=== PATIENT | male | born 1935 | race Caucasian/White ===

== ENCOUNTER → 2016-02-19 | Day surgery (SDC) | payer OTHER ==
[2016-02-14 10:33] VITALS: Ht 179.1 cm; Wt 91.4 kg
[~2016-02-19] VITALS: Ht 179.1 cm; Wt 91.4 kg
[~2016-02-19] MED LIST: 500ML BSS 0.3ML EPI 1:1000PF IRRIG ONE; ACETAMINOPHEN 325 MG TAB PO PRN; AMVISC PLUS 0.8ML SYRINGE INT OCU ONE; ASPCH81X PO; ATROPINE SULFATE 0.1 MG/ML 5ML SYR IV PRN; AcetaZOLAMIDE 250 MG TAB PO SCH; BETAXOLOL HCL 0.25% OP SUSP PER DROP CHARGE OPR SCH; BRIMONIDINE TART 0.2% OP SOLN PER DROP CHARGE ONE; BSS FLUSH ONE; CALC600T9 PO; CINN1CAP2 PO; ENDOCOAT 0.85ML SYRINGE INT OCU ONE; EpHEDrine SULFATE INJ 50 MG/ML AMP IV PRN; EpINEphrine INJ 1MG/ML AMP 1 MG/ML AMP ONE; FENTANYL CITRATE INJ 50 MCG/1 ML 2 ML VIAL IV PRN; FLUMAZENIL 0.1 MG/1 ML 10 ML VIAL IV PRN; GINS1CAP PO; HYDROmorphone INJ 0.5 MG/0.5 ML SYR IV PRN; HydrALAZINE HCL 20 MG/ML VIAL IV. STA; HydrALAZINE HCL 20 MG/ML VIAL ONE; LABETALOL HCL IV 5 MG/ML 20ML IV PRN; LACTATED RINGER'S 1000ML 500 ML IV SCH; LIDOCAINE 4% OP SOLN DROP CHARGE ONE; LIDOCAINE 4% OP SOLN DROP CHARGE OPR SCH; LIDOCAINE HCL 1% MPF 2 ML VIAL ONE; MELO15TA4 PO; MEPERIDINE HCL 25 MG/ML CARP IV PRN; MIDAZOLAM HCL 1 MG/ML 2ML VIAL ONE; MIX: 4ML BSS 1ML EPI 1:1000 PF INSTIL ONE; MOXIFLOXACIN OPH SOLN PER DROP CHARGE ONE; NALOXONE HCL 0.4 MG/1 ML VIAL/CARP IV PRN; NIAC500T11 PO; NUTRTAB48 PO; OCUCOAT 1 ML SOLN IO ONE; OMEG10007 PO; ONDANSETRON INJ 2 MG/ML 2 ML VIAL IV PRN; PHENYLEPHRINE 100MCG/ML 5ML SYR IV PRN; POVIDONE-IODINE OP SOLN 30 ML BTL ONE; PRDFOPS/10 OPR; PROPARACAINE 0.5% OP SOLN PER DROP CHARGE OPR SCH; PROPARACAINE HCL 0.5% OP SOLN 15 ML BTL OPR ONE; TOBRAMYCIN/DEXAMETHASONE OPH OINT PER APPLN CHARGE ONE; TUMERIC PO; TURM500T PO; VITATAB8 PO; [UNRECOGNIZED DRUG - CODE] PO; [UNRECOGNIZED DRUG - OTHER] PO
[2016-02-19] MEDS: PHENYLEPHRINE HCL 2.5% OP SOLN PER DROP CHARGE OPR SCH ×2 (07:53→07:58)
[2016-02-19] MEDS: TROPICAMIDE 1% OP SOLN PER DROP CHARGE OPR SCH ×2 (07:54→07:59)
[2016-02-19] MEDS: CYCLOPENTOLATE HCL 1% OP SOLN PER DROP CHARGE OPR SCH ×2 (07:55→08:00)
[2016-02-19] MEDS: MOXIFLOXACIN OPH SOLN PER DROP CHARGE OPR SCH ×2 (07:56→08:06)
--- NOTE | 2016-02-19 08:17 | History & Physical Bridge - SC ---
H&P Re-Evaluation Bridge Note: I have examined the patient, reviewed the History & Physical and in the interval since the performance of the History & Physical I have noted the following changes of clinical significance: No changes noted Planning Femto Laser.
--- NOTE | 2016-02-19 09:20 | Discharge Instructions-SurgCtr ---
Discharge Instructions Visit Reason for Visit: Cataract Right Eye Discharge Discharge Diagnosis / Problem: Lens Implant Right Eye Discharge Goals Goal(s): Improve function Activity Recommendations Activity Limitations: resume your previous activity Lifting Limitations: no more than 10 pounds Exercise/Sports Limitations: gradually increase as tolerated May Resume Sexual Activity: when tolerated Shower/Bathe: tomorrow Driving or Machine Use: resume 1 day after discharge Anesthesia . Post Anesthesia Instructions: If you have had General Anesthesia or IV Sedation: * Do not drive today. * Resume driving when surgeon permits. * Do not make important decisions or sign legal documents today. * Call surgeon for: 1. Temperature elevations greater than 101 degrees F. 2. Uncontrollable pain. 3. Excessive bleeding. 4. Persistent nausea and vomiting. 5. Medication intolerance (nausea, vomiting or rash). * For nausea and vomiting use only clear liquids such as: tea, soda, bouillon until nausea subsides, then gradually increase diet as tolerated. * If you have any concerns or questions, call your surgeon's office. If physician is unavailable and it is an emergency, call 911 or go to the nearest emergency room. . Instructions / Follow-Up Instructions / Follow-Up ACTIVITY RECOMMENDATIONS: * Light activities. * Mild irritation and blurred vision are common for the first few days. * You may walk outside, read, watch television. * Redness around the white part of the eye is common. MEDICATIONS: Resume previous medications unless instructed otherwise by your surgeon. * Take white Diamox (Acetazolamide) tablet at 1 pm today. Start all eye drops at 1 pm today: * Eye drops (today and tomorrow): Prednisone - one drop in operative eye every 3 hours while awake Ofloxacin - one drop in operative eye every 3 hours while awake SPECIAL CARE INSTRUCTIONS: * Tape plastic shield over eye to sleep at night. Call your doctor at with any concerns or problems. FOLLOW UP VISIT: Follow-up with Dr Glass at [place] office as scheduled. Diet Recommendations Home Diet: no limitations Pending Studies Studies pending at discharge: no Medical Emergencies . Who to Call and When: Medical Emergencies: If at any time you feel your situation is an emergency, please call 911 immediately. . Non-Emergent Contact Non-Emergency issues call your: Manager Management Call Non-Emergent contact if: your pain is not controlled [phone] . . "Provider Documentation" section prepared by Seven Glass.
--- NOTE | 2016-02-19 09:23 | [facility] Operative Report ---
Operative Report 1. PREOPERATIVE DIAGNOSIS: Senile nuclear cataract, right eye. 2. POSTOPERATIVE DIAGNOSIS: Senile nuclear cataract, right eye. 3. PROCEDURE: Phacoemulsification of right cataract with posterior chamber lens implant, type Bausch & Lomb, model [id number] Restor, power +20.0 diopters. ANESTHESIA: Local standby. SURGEON: Dr. Glass. COMPLICATIONS: None. OPERATING TIME: 10 minutes. 4. OPERATION AND FINDINGS: DESCRIPTION OF PROCEDURE: The right pupil was dilated. The eye was appropriately marked. The patient was transported to the Femto Laser. The laser was used to make the primary incision and the capsulotomy and to soften the lens and placed one arcuate incision. The anesthetic was administered using a topical technique. The right eye was prepped and draped. A speculum was placed. A paracentesis was placed. The chamber was filled with Amvisc Plus and Viscoat. Epinephrine solution was used. The capsule was removed. The nucleus was hydrodissected. The lens was removed with phacoemulsification. Time was 2.56 seconds. The aspiration unit was used to remove the cortex. The capsule was filled with Amvisc Plus. The lens implant was folded and placed into the capsule. The incision was hydrated. The Amvisc was aspirated. The wound was secure. The chamber was deep. The pupil was round. TobraDex ointment and Vigamox solution were placed. The speculum was removed. The patient was returned to the Recovery Room in stable condition. I attest to the content of the Intraoperative Record and any orders documented therein. Any exceptions are noted below. The scribe's documentation has been prepared in my presence, under my direction and personally reviewed by me in its entirety. I confirm that the note above accurately reflects all work, treatment, procedures, and medical decision making performed by me. I personally scribed for Seven Glass M.D. ([email or web address]) on 02/19/16 at 09:23. Electronically submitted by Olga CRABTREE).
[2016-02-19 09:26] VITALS: TEMP 36.6
[2016-02-19 10:00] VITALS: BP 162/75; PULSE 65; O2SAT 97
--- NOTE | 2016-02-19 10:00 | Anesthesia Progress Nt - [facility] ---
Anesthesia Post Op Note Date & Time Feb 19, 2016 at 09:58 Vital Signs Pain Intensity: 0 Vital Signs Past 12 Hours Date Time Temp Pulse Resp B/P Pulse Ox O2 Delivery O2 Flow Rate FiO2 02/19/16 09:26 36.6 56 16 171/97 96 Room Air 02/19/16 08:57 181/91 02/19/16 08:54 60 02/19/16 08:54 60 191/109 94 02/19/16 08:53 199/98 02/19/16 07:45 36.1 59 16 167/99 97 Room Air Notes Mental Status: alert / awake / arousable, participated in evaluation Pt Amnestic to Procedure: Yes Nausea / Vomiting: adequately controlled Pain: adequately controlled Airway Patency, RR, SpO2: stable & adequate BP & HR: stable & adequate, see Notes Hydration State: stable & adequate Anesthetic Complications: no major complications apparent The patient was hypertensive preoperatively and postoperatively (160s/90s). He was given hydralazine in the PACU. The patient states that his SBP is normally in the 130s. I talked to the patient and his about the dangers of high blood pressure. They will check it at home and contact his primary physician if it remains elevated.
== END | disposition home or self-care (01) ==
LOC: X.SURG 07:29
PROVIDERS: ATTEND Specialist
DX: H25.11 Age-related nuclear cataract, right eye (principal)

== ENCOUNTER → 2016-03-11 | Day surgery (SDC) | payer OTHER ==
[2016-03-03 08:54] VITALS: Ht 179.1 cm; Wt 91.4 kg
[~2016-03-11] VITALS: Ht 179.1 cm; Wt 91.4 kg
[~2016-03-11] MED LIST changes: +BETAXOLOL HCL 0.25% OP SUSP PER DROP CHARGE OPL SCH; -BETAXOLOL HCL 0.25% OP SUSP PER DROP CHARGE OPR SCH; -EpHEDrine SULFATE INJ 50 MG/ML AMP IV PRN; -FENTANYL CITRATE INJ 50 MCG/1 ML 2 ML VIAL IV PRN; -FLUMAZENIL 0.1 MG/1 ML 10 ML VIAL IV PRN; -HYDROmorphone INJ 0.5 MG/0.5 ML SYR IV PRN; -HydrALAZINE HCL 20 MG/ML VIAL IV. STA; -HydrALAZINE HCL 20 MG/ML VIAL ONE; -LABETALOL HCL IV 5 MG/ML 20ML IV PRN; +LACTATED RINGER'S 1000ML 1,000 ML IV SCH; -LACTATED RINGER'S 1000ML 500 ML IV SCH; +LIDOCAINE 4% OP SOLN DROP CHARGE OPL SCH; -LIDOCAINE 4% OP SOLN DROP CHARGE OPR SCH; -MEPERIDINE HCL 25 MG/ML CARP IV PRN; -NALOXONE HCL 0.4 MG/1 ML VIAL/CARP IV PRN; -ONDANSETRON INJ 2 MG/ML 2 ML VIAL IV PRN; -PHENYLEPHRINE 100MCG/ML 5ML SYR IV PRN; +PROPARACAINE 0.5% OP SOLN PER DROP CHARGE OPL SCH; -PROPARACAINE 0.5% OP SOLN PER DROP CHARGE OPR SCH; +PROPARACAINE HCL 0.5% OP SOLN 15 ML BTL OPL ONE; -PROPARACAINE HCL 0.5% OP SOLN 15 ML BTL OPR ONE; -VITATAB8 PO
[2016-03-11] MEDS: PHENYLEPHRINE HCL 2.5% OP SOLN PER DROP CHARGE OPL SCH ×2 (06:38→06:43)
--- NOTE | 2016-03-11 06:38 | History & Physical Bridge - SC ---
H&P Re-Evaluation Bridge Note: I have examined the patient, reviewed the History & Physical and in the interval since the performance of the History & Physical I have noted the following changes of clinical significance: No changes noted
[2016-03-11] MEDS: TROPICAMIDE 1% OP SOLN PER DROP CHARGE OPL SCH ×2 (06:39→06:44)
[2016-03-11] MEDS: CYCLOPENTOLATE HCL 1% OP SOLN PER DROP CHARGE OPL SCH ×2 (06:40→06:45)
[2016-03-11] MEDS: MOXIFLOXACIN OPH SOLN PER DROP CHARGE OPL SCH ×2 (06:41→06:51)
--- NOTE | 2016-03-11 07:25 | Discharge Instructions-SurgCtr ---
Discharge Instructions Visit Reason for Visit: Cataract Left Eye Discharge Discharge Diagnosis / Problem: Lens Implant Left Eye Discharge Goals Goal(s): Improve function Activity Recommendations Activity Limitations: resume your previous activity Lifting Limitations: no more than 10 pounds Exercise/Sports Limitations: gradually increase as tolerated May Resume Sexual Activity: when tolerated Shower/Bathe: tomorrow Driving or Machine Use: resume 1 day after discharge Anesthesia . Post Anesthesia Instructions: If you have had General Anesthesia or IV Sedation: * Do not drive today. * Resume driving when surgeon permits. * Do not make important decisions or sign legal documents today. * Call surgeon for: 1. Temperature elevations greater than 101 degrees F. 2. Uncontrollable pain. 3. Excessive bleeding. 4. Persistent nausea and vomiting. 5. Medication intolerance (nausea, vomiting or rash). * For nausea and vomiting use only clear liquids such as: tea, soda, bouillon until nausea subsides, then gradually increase diet as tolerated. * If you have any concerns or questions, call your surgeon's office. If physician is unavailable and it is an emergency, call 911 or go to the nearest emergency room. . Instructions / Follow-Up Instructions / Follow-Up ACTIVITY RECOMMENDATIONS: * Light activities. * Mild irritation and blurred vision are common for the first few days. * You may walk outside, read, watch television. * Redness around the white part of the eye is common. MEDICATIONS: Resume previous medications unless instructed otherwise by your surgeon. * Take white Diamox (Acetazolamide) tablet at 1 pm today. Start all eye drops at 1 pm today: * Eye drops (today and tomorrow): Prednisone - one drop in operative eye every 3 hours while awake Ofloxacin - one drop in operative eye every 3 hours while awake SPECIAL CARE INSTRUCTIONS: * Tape plastic shield over eye to sleep at night. Call your doctor at with any concerns or problems. FOLLOW UP VISIT: Follow-up with Dr Glass at [place] office as scheduled. Diet Recommendations Home Diet: no limitations Procedures Procedures Performed: Left Eye Femtosecond Laser Pending Studies Studies pending at discharge: no Medical Emergencies . Who to Call and When: Medical Emergencies: If at any time you feel your situation is an emergency, please call 911 immediately. . Non-Emergent Contact Non-Emergency issues call your: Tele[employer] Network Manager Call Non-Emergent contact if: your pain is not controlled [phone] . . "Provider Documentation" section prepared by Seven Glass.
--- NOTE | 2016-03-11 07:29 | [facility] Operative Report ---
Operative Report 1. PREOPERATIVE DIAGNOSIS: Senile nuclear cataract, left eye. 2. POSTOPERATIVE DIAGNOSIS: Senile nuclear cataract, left eye. 3. PROCEDURE: Phacoemulsification of left cataract with posterior chamber lens implant, type Bausch & Lomb, model Restor SV25TO, power +19.5 diopters. ANESTHESIA: Local standby. SURGEON: Dr. Glass. COMPLICATIONS: None. OPERATING TIME: 10 minutes. 4. OPERATION AND FINDINGS: DESCRIPTION OF PROCEDURE: The left pupil was dilated. The patient was transported to the Femto room. The Femto Laser was used to make the astigmatic incision. He was transported to the operating room. The anesthetic was administered using a topical technique. The left eye was prepped and draped. A speculum was placed. A clear corneal incision was formed. The chamber was filled with Amvisc Plus and Endocoat. Epinephrine solution was used. A paracentesis was placed. A capsulorrhexis was performed. The nucleus was hydrodissected. The lens was removed with phacoemulsification. Time was 5.09 seconds. The aspiration unit was used to remove the cortex. The capsule was filled with Amvisc Plus. The lens implant was folded and placed into the capsule. The incision was hydrated. The Amvisc was aspirated. The wound was secure. The chamber was deep. The pupil was round. TobraDex ointment and Vigamox solution were placed. The speculum was removed. The patient was returned to the Recovery Room in stable condition. I attest to the content of the Intraoperative Record and any orders documented therein. Any exceptions are noted below. The scribe's documentation has been prepared in my presence, under my direction and personally reviewed by me in its entirety. I confirm that the note above accurately reflects all work, treatment, procedures, and medical decision making performed by me. I personally scribed for Seven Glass M.D. ([email or web address]) on 03/11/16 at 07:29. Electronically submitted by Olga Gill ([email or web address]).
[2016-03-11 07:30] VITALS: TEMP 36.2
--- NOTE | 2016-03-11 07:50 | Anesthesia Progress Nt - [facility] ---
Anesthesia Post Op Note Date & Time Mar 11, 2016 at 07:50 Vital Signs Pain Intensity: 0 Vital Signs Past 12 Hours Date Time Temp Pulse Resp B/P Pulse Ox O2 Delivery O2 Flow Rate FiO2 03/11/16 07:30 36.2 67 16 143/84 99 Room Air 03/11/16 07:07 62 20 160/96 96 Room Air 03/11/16 06:57 62 20 174/101 97 Room Air 03/11/16 06:30 36.5 61 16 142/91 95 Room Air Notes Mental Status: alert / awake / arousable, participated in evaluation Pt Amnestic to Procedure: Yes Nausea / Vomiting: adequately controlled Pain: adequately controlled Airway Patency, RR, SpO2: stable & adequate BP & HR: stable & adequate Hydration State: stable & adequate Anesthetic Complications: no major complications apparent
[2016-03-11 07:55] VITALS: BP 163/89; PULSE 58; O2SAT 96
== END | disposition home or self-care (01) ==
LOC: X.SURG 06:13
PROVIDERS: ATTEND Specialist
DX: H26.9 Unspecified cataract (principal); H54.7 Unspecified visual loss

== ENCOUNTER 2021-12-26 06:15 | Observation (INO) ==
--- NOTE | 2021-11-25 10:51 | PAT Medication Instructions ---
Medication Instructions Date of Service November 25, 2021 Home Medications metoprolol tartrate 25 mg tablet 50 mg PO QAM tamsulosin 0.4 mg capsule 0.4 mg PO HS acetaminophen 325 mg tablet 650 mg PO QAM aspirin 81 mg tablet,delayed release 81 mg PO QAM melatonin 3 mg tablet 6 mg PO HS PRN Take morning of surgery With a small sip of water, OTHERWISE NOTHING TO EAT OR DRINK AFTER MIDNIGHT: metoprolol tartrate 25 mg tablet 50 mg PO QAM acetaminophen 325 mg tablet 650 mg PO QAM aspirin 81 mg tablet,delayed release 81 mg PO QAM (unless directed otherwise by surgeon) Take evening before surgery tamsulosin 0.4 mg capsule 0.4 mg PO HS melatonin 3 mg tablet 6 mg PO HS PRN(if needed) Other Notes If you have any questions please call us at [phone] or [phone] or [phone] or [phone]
--- NOTE | 2021-11-27 11:12 | Anesthesiology Consultation ---
Date of Service November 27, 2021 Assessment & Plan (1) Encounter for pre-operative examination: - cardiology pre-op evaluation needed. Outpatient joint assessment: Patient is currently scheduled for inpatient pathway. If re-evaluated pending system levels during current pandemic/surgeon requests outpatient pathway, patient is not acceptable candidate for outpatient joint program from anesthesia standpoint. Chart Review Chart Review: Pending: Refer to Additional Notes / Consult section and Patient seen in Pre Admission Testing Teaching & Discussion Pre-Anesthesia Teaching/Discussion Notes: Instructed NPO after midnight before surgery, except medications with 15 cc of water. Medication instructions provided according to the PAT guidelines. History Surgery Operation Date: 12/26/21 07:00 Proposed Procedures p Right Total Knee Arthroplasty - Jamel Lott MD Height/Weight Height: 5 ft 10 in Weight: 92.986 kg Allergies Allergy/AdvReac Type Severity Reaction Status Date / Time morphine AdvReac Mild nausea and Verified 11/27/21 11:29 vomiting Medications Home Medications Medication Instructions Recorded Confirmed Last Taken metoprolol tartrate 25 mg tablet 50 mg PO QAM 12/04/20 11/21/21 Unknown tamsulosin 0.4 mg capsule 0.4 mg PO HS 12/04/20 11/21/21 Unknown acetaminophen 325 mg tablet 650 mg PO QAM 11/21/21 11/21/21 Unknown aspirin 81 mg tablet,delayed 81 mg PO QAM 11/21/21 11/21/21 Unknown release melatonin 3 mg tablet 6 mg PO HS PRN Insomnia 11/21/21 11/21/21 Unknown Past Medical History Medical History (Updated 11/27/21 @ 11:38 by Christina Herrera PA-C) CAD (coronary artery disease) CABG x 2, 2 KAYLIN, follows with Dr. Alvarado with [facility]; residual ostial 80-90% stenosis, residual 70-80% stenosis OM1 and distal 50-60% stenosis Carpal tunnel syndrome on both sides Dystonia HTN (hypertension) controlled, stable per pt Lung nodule Myotonic disorder Prostate cancer no interventions, just gets checked yearly STEMI (ST elevation myocardial infarction) July 2020 > 2 KAYLIN to RCA Thyroid nodule Patient denies h/o stroke, seizures, heart failure, DM, blood clots or blood transfusions. Exercise / Class Metabolic Activity II 4-5 Yardwork/Stairs/Walk up hill (occ SOB with 1 FOS since reduced physical activity due to knee dysfunction) Past Surgical History Surgical History History of arthroscopy right knee History of cataract surgery bilat History of colonoscopy History of coronary artery bypass graft CABG x 2 GIL to LAD; SVG to OM > April 2021 History of left knee replacement History of tooth extraction Hx of vasectomy Past Anesthesia History No Hx of Anesthesia Complications and No Family Hx of Anesthesia Complications History of PONV No Hx of Motion Sickness and History of PONV (after knee replacement, d/t morph ine per pt) Social History Smoking Status: Former smoker tobacco type: cigarettes Do You Dip or Chew Tobacco: No Smoking End Date: 1976 Hx Alcohol Use: Yes Alcohol type: beer alcohol intake frequency: a few times a week Hx Substance Use: No substance use type: does not use Review of Systems Patient denies chest pain, shortness of breath, dyspnea on exertion, snoring, witnessed apneas, reflux, fever, chills, cough, wheezing, or palpitations. Physical Exam Vital Signs Vitals BP 143/81 P 54 TEMP 97.7 SP02 98% on RA RESP 18 Physical Full cervical extension range of motion without pain TMD 3.5 finger breadths Mallampati Score 3 Dentition: intact, one removable tooth; denies chipped or loose teeth, caps/crowns or implants Lungs: normal respiratory effort. Clear throughout to auscultation, no adventitious breath sounds Cardiac: regular rate and rhythm, no murmurs noted Carotid arteries: negative bruit bilat Lab Results Anesthesia Preop Results Results Anesthesia Widget: WBC 5.71 K/ul (4.8-10.8) 11/27/21 Hgb 15.1 g/dl (14.0-18.0) 11/27/21 Hct 43.4 % (40.1-51.0) 11/27/21 Plt 294 K/uL (130-400) 11/27/21 Na 139 mmol/L (136-145) 11/27/21 K 4.7 mmol/L (3.5-5.1) 11/27/21 Cl 107 mmol/L (98-107) 11/27/21 CO2 28 mmol/L (21-32) 11/27/21 BUN 23 mg/dl (6-23) 11/27/21 Creat 0.96 mg/dl (0.6-1.4) 11/27/21 Glucose Level 79 mg/dl (70-99(Fasting)) 11/27/21 PT 10.3 Seconds (9.0-12.0) 11/27/21 PTT 26.7 Seconds (21.0-31.0) 11/27/21 INR 1.0 (0.9-1.1) 11/27/21 Blood Type O Positive 11/27/21 Antibody Screen NEGATIVE 11/27/21 Testing Electrocardiogram Date: 11/27/21 Sinus bradycardia, rate 56 bpm T wave inversion in anterolateral leads, consider ischemia Chest X-Ray Date: 08/21/21 No acute cardiopulmonary abnormalities Echocardiogram Date: 08/06/20 EF 50-55% Borderline LVH Basal inferior and basal inferoseptum akinetic Mid inferior wall and mid inferoseptum are hypokinetic Mild left atrial enlargement Thickened aortic valve, area 2.0 cm2 and mean gradient 6 mmHg Cardiac Catheterization Date: 08/06/20 Left main: distal 70-80% stenosis LAD: proximal 30-40% stenosis Cx: ostial 80-90% stenosis and distal 50-60% disease. OM1 70-80% stenosis RCA: mid 70-80% stenosis followed by a 100% acute thrombotic occlusion of distal RCA. Beginning left to right collateral formation noted Successful PTCA and stenting of the mid and distal RCA with 2 KAYLIN, 0% residual stenosis in mid and distal RCA Other Testing Holter monitor report 09/23/21 Rhythm is sinus, aver HR 60 bpm. Min 43 bpm. Max 124 bpm. No episodes of afib or atrial flutter. Rare supraventricular ectopy without supraventricular tachycardia. Rare ventricular ectopy with 3 beat run of nonsustained Vtach. No significant pauses. Essential normal Holter monitor CT abdomen pelvis 07/31/21 Stable millimetric nodules in the lung bases Prostate stable in appearance and redemonstrates multiple calcifications; seminal vesicles are symmetric Sigmoid diverticulosis noted Small fat containing inguinal hernias Stable exam compared to 09/18/2020. No signs of recurrent disease. No signs of metastatic disease COVID-19 Risk Screen Screening Information COVID-19 Screen Date: 11/27/21 Exposure 21 Days Family/Household +COVID Last 21 Days: No Exposure 10 Days Any COVID Exposure Last 10 Days: No Symptoms Last 10 Days Experienced COVID Sx Last 10 Days: No + COVID 0-90 Days COVID + in Last 0-90 Days: No
--- NOTE | 2021-12-19 08:48 | History and Physical Report ---
DATE OF ADMISSION: 12/26/2021. CHIEF COMPLAINT: Persistent right knee pain and discomfort. HISTORY OF PRESENT ILLNESS: The patient is an 86-year-old gentleman who now presents for surgical tr eatment of his right knee. I have been following for quite some time for recurrent right knee pain a nd discomfort and large effusions. He has a history of left knee replacement done by Dr. Laurie hedrick in 2014. He has done okay with this knee, but not exactly great. He has been put off knee surgery for some time. The knee has become more painful. He has been through extensive conservative treatm ent. He was planning on having it replaced and then COVID hit and he has put it off. He now present s for definitive treatment. He was diagnosed with significant heart disease, had some stents placed after heart attack and then a CABG procedure about 8 months ago. He has recovered from this and woul d like to proceed. He has been cleared by his senior business architect. His pain is mostly global. Increased with weightbearing. He has trouble walking any distance due to the discomfort. PAST MEDICAL HISTORY: Significant for: 1. Coronary artery disease, status post NC in 2000 and subsequent stent placement and then a CABG. He has been doing okay with this and cleared by his senior business architect. 2. Hypertension. 3. Elevated cholesterol. 4. Hiatal hernia. 5. Back pain. 6. Prostate cancer. 7. Kidney stones. PAST SURGICAL HISTORY: Includes: 1. Left knee replacement done by Dr. Sullivan, 03/08/2014. 2. Right knee arthroscopy done by Dr. Carrizales, 02/04/1998. 3. Cataract surgery. 4. Vasectomy. 5. Open heart surgery and CABG. ALLERGIES: None. CURRENT MEDICATIONS: 1. Atorvastatin. 2. Tamsulosin. 3. Aspirin. 4. Turmeric. 5. Niacin. 6. Metoprolol. 7. Meloxicam. 8. Ginseng. 9. Fish oil. SOCIAL HISTORY: An 86-year-old male. He does not smoke. Six to 10 drinks per week. FAMILY HISTORY: Noncontributory. REVIEW OF SYSTEMS: Significant for his heart attack and stent placement, CABG. He is currently asym ptomatic. No chest pain or shortness of breath. No DVT or PE. No known bleeding problems. PHYSICAL EXAMINATION: GENERAL: Shows a pleasant middle-aged male. Looks to be in pretty good health. HEENT: Benign. NECK: Supple. No lymphadenopathy. LUNGS: Clear to auscultation. HEART: Has a regular rate and rhythm. ABDOMEN: Soft, nontender, nondistended. EXTREMITIES: Grossly neurovascularly intact except as follows. Examination of the right knee reveals the patient ambulates with a little bit of a limp. He has got slight varus alignment to his knee. Moderate size knee effusion. Range of motion is 0-120. No inst ability. Examination of the left knee reveals a well-healed incision. Anatomic alignment to the knee. Range of motion is 0-120. No swelling. X-RAYS: X-rays of the right knee reviewed. It shows advanced right knee degenerative joint disease. He has got complete loss of his medial joint space. A varus deformity to his knee. He has got sub chondral sclerosis. The left knee replacement looks to be in pretty good position. He does have daisha e fragmentation of the patella on the left side. ASSESSMENT: An 86-year-old gentleman with multiple medical comorbidities, most significant history o f heart disease, stent placement, coronary artery bypass grafting, status post a left knee replacemen t 7 years ago with right knee degenerative joint disease. Does have history of a right knee arthrosc opy in the past. He has failed conservative measures and would like to have his right knee replaced. PLAN: We will take him to the operating room and do right total knee replacement. The risks and kristen efits of this procedure were explained to the patient and include but not limited to DVT, PE, , infection, neurological injury, vascular injury, bleeding problem, pain, limited range of motion, sti ffness, failure to relieve symptoms, incomplete relief of symptoms, etc. The patient understands and desires to proceed. Informed consent was obtained. He has been seen by [facility] cardiology and cleared for surgery. We will use aspirin for DVT prophylaxis . He is planning to be discharged to home with [facility]. [facility] weeks postop. Job ID: [id number]
[~2021-12-26 06:15] MED LIST changes: -500ML BSS 0.3ML EPI 1:1000PF IRRIG ONE; -ACETAMINOPHEN 325 MG TAB PO PRN; +ACETAMINOPHEN 500 MG TAB PO SCH; -AMVISC PLUS 0.8ML SYRINGE INT OCU ONE; -ASPCH81X PO; -ATROPINE SULFATE 0.1 MG/ML 5ML SYR IV PRN; -AcetaZOLAMIDE 250 MG TAB PO SCH; -BETAXOLOL HCL 0.25% OP SUSP PER DROP CHARGE OPL SCH; -BRIMONIDINE TART 0.2% OP SOLN PER DROP CHARGE ONE; -BSS FLUSH ONE; +BUPIVACAINE LIPOSOME/PF 266 MG, BUPIVACAINE/EPINEPHRINE 50 ML, SODIUM CHLORIDE 0.9% 30 ... INFIL SCH; -CALC600T9 PO; -CINN1CAP2 PO; +CeleBREX 200 MG CAP PO SCH; -ENDOCOAT 0.85ML SYRINGE INT OCU ONE; -EpINEphrine INJ 1MG/ML AMP 1 MG/ML AMP ONE; +FAMOTIDINE 20 MG TAB PO SCH; -GINS1CAP PO; -LACTATED RINGER'S 1000ML 1,000 ML IV SCH; -LIDOCAINE 4% OP SOLN DROP CHARGE ONE; -LIDOCAINE 4% OP SOLN DROP CHARGE OPL SCH; -LIDOCAINE HCL 1% MPF 2 ML VIAL ONE; +LR 500ML BOLUS, THEN 15ML/HR IV SCH; +LR 60ML/HR IV SCH; -MELO15TA4 PO; -MIDAZOLAM HCL 1 MG/ML 2ML VIAL ONE; -MIX: 4ML BSS 1ML EPI 1:1000 PF INSTIL ONE; -MOXIFLOXACIN OPH SOLN PER DROP CHARGE ONE; -NIAC500T11 PO; -NUTRTAB48 PO; -OCUCOAT 1 ML SOLN IO ONE; -OMEG10007 PO; -POVIDONE-IODINE OP SOLN 30 ML BTL ONE; -PRDFOPS/10 OPR; -PROPARACAINE 0.5% OP SOLN PER DROP CHARGE OPL SCH; -PROPARACAINE HCL 0.5% OP SOLN 15 ML BTL OPL ONE; -TOBRAMYCIN/DEXAMETHASONE OPH OINT PER APPLN CHARGE ONE; +TRANEXAMIC ACID 1,000 MG **IV Intra-op IV SCH; -TUMERIC PO; -TURM500T PO; -[UNRECOGNIZED DRUG - CODE] PO; -[UNRECOGNIZED DRUG - OTHER] PO; +ceFAZolin 2000MG 2,000 MG/15 ML SYR IV SCH
[2021-12-26] MEDS ORDERED: BUPIVACAINE 0.5 % 5 MG/1 ML PF 10ML VIAL ONE (06:18)
[2021-12-26] MEDS ORDERED: ROPIVACAINE 0.5% 5 MG/ML 30 ML VIAL ONE (06:18)
[2021-12-26] MEDS ORDERED: EPINEPHrine INJ 1 MG/ML AMP ONE ×2 (06:19→08:54)
--- NOTE | 2021-12-26 06:56 | History & Physical Bridge Note ---
Date of Service December 26, 2021 History & Physical Bridge Note I have examined the patient, reviewed the History & Physical and in the interval since the performance of the History & Physical I have noted the following changes of clinical significance: no changes noted
[2021-12-26] MEDS ORDERED: LIDOCAINE 2% MPF LOCAL 5 ML VIAL INFIL ONE (07:41)
[2021-12-26] MEDS ORDERED: ONDANSETRON INJ 2 MG/ML 2 ML VIAL ONE (07:41)
[2021-12-26] MEDS ORDERED: MIDAZOLAM HCL 1 MG/ML 2ML VIAL ONE (07:41)
[2021-12-26] MEDS ORDERED: PROPOFOL IV EMULSION 10 MG/ML 20 ML VIAL IV ONE (07:41)
[2021-12-26] MEDS ORDERED: BUPIVACAINE 0.5 % 5 MG/1 ML MPF 30ML VIAL ONE (08:54)
[2021-12-26] MEDS ORDERED: SODIUM CHLORIDE 0.9% PF 50 ML VIAL ONE (08:54)
[2021-12-26] MEDS ORDERED: BUPIVACAINE LIPOSOME 1.3% 266 MG/20 ML VIAL ONE (08:55)
[2021-12-26] MEDS ORDERED: ATROPINE SULFATE 0.1 MG/ML 10ML SYR IV PRN (09:10)
[2021-12-26] MEDS ORDERED: ePHEDrine sulfate 50 MG/ML AMP IV PRN (09:10)
[2021-12-26] MEDS ORDERED: BUPIVACAINE/EPINEPHRINE 0.25% 1:200,000 30 ML VIAL ONE (09:14)
[2021-12-26] MEDS ORDERED: SODIUM CHLORIDE 0.9% INJ 10 ML VIAL ONE (09:52)
[2021-12-26] MEDS ORDERED: ePHEDrine sulfate 50 MG/ML AMP ONE (09:52)
--- NOTE | 2021-12-26 11:09 | Operative Report ---
PG Post Operative Report Pre & Post Diagnosis Operation Date: 12/26/21 08:50 Pre-Op Diagnosis: Right Knee Advanced Degenerative Joint Disease Post-Op Diagnosis: Right Knee Advanced Degenerative Joint Disease I identified the patient and participated in the time-out.: Yes Procedure Operation Date: 12/26/21 08:50 Actual Procedures p Right Total Knee Arthroplasty(Right) - Jamel Lott MD Surgeon Jamel Lott MD Valve Inspector Harjit Curtis PA-C Estimated Blood Loss 50 Findings Consistent with Post-Op Diagnosis Operative findings real advanced right knee DJD. Extensive grade 4 [id number] disease the entire medial compartment. A varus deformity to his knee and a slight flexion contracture. Moderate-sized joint effusion. He had spotty grade 4 changes in the patellofemoral joint. The lateral compartment is pretty well- preserved. Specimens Right knee sent for pathology Anesthesia Type Spinal MAC Complications none Disposition Accompanied Patient To Recovery: No Indications Patient is an 86-year-old gentleman has a several year history of gradually increasing pain and discomfort in his right knee. Did have a history of the left knee replaced in the past. The knee feels conservative measures. Was affecting his quality of life and ability to maintain an independent active lifestyle. He elected proceed with surgical treatment. Description of Procedure Operative implants consist of: 1. Biomet Vanguard size 72.5 right posterior stabilized femoral component. 2. Biomet size 75 tibial tray. 3. 12 mm posterior stabilized polyethylene insert. 4. 31 x 8 all Paller Li patella. The patient was taken to the operating, identified and placed on the operating table supine position but all contact areas were properly padded. IV antibiotics tried by anesthesia team. Spinal anesthetic and abductor canal block had provided holding area. May catheter was then placed in sterile fashion. A right thigh tent was then placed. The right lower extremity was then prepped and draped in usual sterile fashion. The right leg was elevated exsanguinated with use of an Esmarch and the tourniquet was placed at 300 mmHg. An anterior posterior the right knee was then performed to longitudinal incision centered over the patella. Sharp dissection Through subcutaneous tissue down the extensor mechanism. A medial parapatellar arthrotomy incision was made. Some subperiosteal dissection was carried out medially. The fat pad was resected from Neath patella tendon. Lateral patellofemoral ligament was released. Patella subluxated laterally knee was flexed. The osteophyte taken off distal femur. ACL and PCL then released from distal femur the tibia subluxated anteriorly. External tibial alignment jig was then placed on the anterior aspect of the tibia. It was adjusted 14 mm medially. Proximal tibial cut was made essentially flush with the most deficient aspect medial tibial plateau. Some osteophytes were taken off medial and posterior medially. The tibia was then sized to a size 75. Attention drawn the femur. The distal femur examined the sharp drop with intramedullary canal was suction. A right 6 degree valgus cutting guide was placed. Distal femoral cutting block was pinned in place. Distal femoral cut was made to take an additional 3 mm of bone off distal femur. The femur was then sized to a size 72.5. The AP cutting block was pinned parallel to the epicondylar axis which was 3 degrees of external rotation. Anterior cut, anterior chamfer, posterior cut, posterior chamfer cuts were made. The box cutting guide was placed in just slight lateral and the box cut was made. The knee was flexed. The remnants of the medial and lateral menisci were excised with the osteophytes taken off the posterior aspect of femur. A trial femoral component was placed. The tibial tray was pinned in maximum external rotation and the drill and stem punch were used to create defect in proximal tibia for the tibial tray. The knee was then trialed and the 12 mm insert fit most appropriately. Attention drawn to the patella. The patella was cleaned of all soft tissues. Patella thickness measured 23 mm in thickness. Was cut down to 15. Was sized to a size 31 patella. The lug holes were drilled for 31 patella. The lateral osteophyte was removed. Patella button was placed. Knee was taken through range of motion patella tracked nicely with no thumbs test. Attention drawn to placing permanent components. All trial components were removed. Bone plug was placed in the distal femur limit blood loss. Double batch Palacos G cement was mixed. Biomet Vanguard size 72.5 right posterior stabilized femoral component, size 75 tibial tray, 12 mm posterior stabilized polyethylene insert, and a 31 x 8 all Paller patella then cemented in place. The knee was brought out into full extension until cement hardened. Final cement check was then performed. Pericapsular tissues were injected with total 100 cc of combination of 20 cc of Exparel, 30 cc normal saline, 50 cc of quarter percent Marcaine with epinephrine. Patient did receive 1 g tranexamic acid. The tourniquet was let down for final turn time of 54 minutes. Hemostasis reduced electrocautery to the extensor mechanism then closed with combination 1 PDS suture #1 Vicryl suture in [id number] fashion. Extensor mechanism checked found to be intact and subcutaneous tissue then closed with 2 Dexon suture in a buried interrupted fashion. The skin was closed skin laith. Leg was then cleaned and dried and sterile dressing was Xeroform, 4 x 4's, sterile cast padding, Juan bandage were applied. Patient then transferred to the recovery room in stable condition. Patient tolerated the procedure well and there were no complications. Harjit Curtis, my physician benefits assistant, was present for the entire procedure. His assistance was essential and required for appropriate patient positioning, prepping and draping, surgical exposure, performing the technical details of the operation, placement the implants, closure of the wound, and placement of the sterile bandage. I attest to the content of the Intraoperative Record and any orders documented therein. Any exceptions are noted below.
--- NOTE | 2021-12-26 11:40 | XRay Report ---
XR knee RT 1 or 2V routine CLINICAL HISTORY: Surgical Post Op TECHNIQUE: 2 views of the right knee were obtained. Comparison: Comparison is made to chest radiograph 03/08/2014 FINDINGS: Patient is status post total knee arthroplasty with expected postsurgical changes including soft tiss ue swelling and subcutaneous emphysema. No periarticular lucency or hardware fracture is seen. IMPRESSION: Expected postoperative appearance status post placement of total knee arthroplasty. ACT 112: Negative or not required by law. Electronically signed by: Giovanni Thomas M.D. 12/26/2021 11:39 AM
--- NOTE | 2021-12-26 11:58 | Anesthesiology Progress Note ---
Date of Service December 26, 2021 Anesthesia Post Procedure Vital Signs Vital Signs: Temp Pulse Pulse Resp BP Pulse Ox O2 Del Method 12/26/21 11:50 48 L 15 162/82 H 100 Nasal Cannula 12/26/21 11:40 56 L 15 147/102 H 99 Nasal Cannula 12/26/21 11:30 55 L 15 182/90 H 98 Nasal Cannula 12/26/21 11:20 56 L 20 146/85 H 95 Room Air 12/26/21 11:10 62 18 142/96 H 98 Room Air 12/26/21 11:03 36.1 C L 72 16 150/73 H 97 Room Air 12/26/21 06:49 36.5 C 56 L 20 143/88 H 95 Room Air O2 Flow Rate 12/26/21 11:50 2 12/26/21 11:40 2 12/26/21 11:30 2 12/26/21 11:20 12/26/21 11:10 12/26/21 11:03 12/26/21 06:49 Pain Intensity Right Knee: Pain Intensity: 5 Transfer of Care Handoff Completed per policy Notes Mental Status: alert / awake / arousable Patient Amnestic to Procedure: Yes Nausea / Vomiting: adequately controlled Pain: adequately controlled Airway Patency, RR, SpO2: stable & adequate BP & HR: stable & adequate Hydration State: stable & adequate Neuraxial Anesthesia: was administered and sensory block is resolving Anesthetic Complications: no major complications apparent
[2021-12-26] MEDS ORDERED: HYDROmorphone INJ 0.5 MG/0.5 ML SYR IV PRN (12:08)
[2021-12-26] MEDS ORDERED: bisacodyL 10 MG SUPP PR PRN (12:08)
[2021-12-26] MEDS ORDERED: MAGNESIUM HYDROXIDE SUSP 30 ML UDC PO PRN (12:08)
[2021-12-26] MEDS ORDERED: oxyCODONE HCL IR 5 MG TAB (IMMEDIATE RELEASE) PO PRN (12:08)
[2021-12-26] MEDS ORDERED: NALOXONE HCL 0.4 MG/1 ML VIAL/CARP IV PRN (12:08)
[2021-12-26] MEDS ORDERED: SODIUM CHLORIDE 0.9% 1000ML 1,000 ML IV SCH (12:08)
[2021-12-26] MEDS ORDERED: ONDANSETRON INJ 2 MG/ML 2 ML VIAL IV PRN (12:08)
[2021-12-26] MEDS ORDERED: ALUMINUM/MAGNESIUM SUSP 30 ML UDC PO PRN (12:08)
[2021-12-26] MEDS ORDERED: METOCLOPRAMIDE HCL INJ 5 MG/ML 2 ML VIAL IV PRN (12:08)
[2021-12-26] MEDS: KETOROLAC TROMETHAMINE 15 MG/ML VIAL IV SCH ×3 (12:55→18:17)
[2021-12-26] MEDS: ACETAMINOPHEN 500 MG TAB PO SCH ×2 (14:26→21:07)
[2021-12-26] MEDS ORDERED: TRANEXAMIC ACID / 0.7% NACL 1,000 MG/100 ML BAG IV SCH (17:00)
[2021-12-26] MEDS: ASCORBIC ACID 500 MG TAB PO SCH (17:09)
[2021-12-26] MEDS: ceFAZolin 2000MG 2,000 MG/15 ML SYR IV SCH (17:09)
[2021-12-26] MEDS: SENNA 8.6 MG TAB PO SCH (21:05)
[2021-12-26] MEDS: ASPIRIN 81 MG ECTAB PO SCH (21:06)
[2021-12-26] MEDS: TAMSULOSIN HCL 0.4 MG CAP PO SCH (21:06)
[2021-12-26] MEDS: DOCUSATE SODIUM 100 MG CAP PO SCH (21:06)
[2021-12-27] MEDS: ceFAZolin 2000MG 2,000 MG/15 ML SYR IV SCH (01:40)
[2021-12-27] MEDS: KETOROLAC TROMETHAMINE 15 MG/ML VIAL IV SCH ×4 (01:41→18:17)
[2021-12-27] MEDS: MELATONIN 3 MG TAB PO PRN ×2 (01:59→21:02)
[2021-12-27 06:25] LABS: Hemoglobin 14.1 g/dl (14.0-18.0); Mean Corpuscular Hemoglobin 33.2 pg (25.0-34.0); Mean Corpuscular Hgb Conc 34.4 g/dL (32.0-36.0); Mean Corpuscular Volume 96.5 fL (80.0-100.0); Mean Platelet Volume 10.1 fL (9.4-12.4); Platelet Count 245 K/uL (130-400); RDW Coefficient of Variation 12.6 % (11.5-14.5); RDW Standard Deviation 44.8 fL (36.4-46.3); Red Blood Count 4.25 M/uL (4.63-6.08); White Blood Count 9.51 K/ul (4.8-10.8)
[2021-12-27] MEDS: ACETAMINOPHEN 500 MG TAB PO SCH ×3 (06:34→21:00)
[2021-12-27 06:55] LABS: BUN Creatinine Ratio 19.8 (10-20); Calcium 8.8 mg/dl (8.5-10.1); Creatinine Clr Calc Pharmacy 55.2 ml/min; Est GFR (African American) 66.7 ml/min; Est GFR (Non-African American) 57.5 ml/min; Potassium 4.2 mmol/L (3.5-5.1)
[2021-12-27] MEDS ORDERED: dexAMETHasone 10 MG in SYRINGE 0 ML IV SCH (08:00)
[2021-12-27] MEDS: ASCORBIC ACID 500 MG TAB PO SCH ×2 (08:17→16:22)
[2021-12-27] MEDS: DOCUSATE SODIUM 100 MG CAP PO SCH ×2 (08:18→20:59)
[2021-12-27] MEDS: ASPIRIN 81 MG ECTAB PO SCH ×2 (08:18→20:53)
[2021-12-27] MEDS: MULTIVITAMIN TAB PO SCH (08:20)
[2021-12-27] MEDS: METOPROLOL TARTRATE 50 MG TAB PO SCH ×2 (08:20→09:44)
--- NOTE | 2021-12-27 10:07 | Progress Notes ---
SUBJECTIVE: An 86-year-old gentleman, postoperative day 1 from right knee replacement. He is doing pretty well. He has been a little hypertensive and that is about it. No symptoms. No chest pain or shortness of breath. Not feeling dizzy or lightheaded. Knee pain has been controlled. OBJECTIVE: VITAL SIGNS: Temperature 36.6. Vital signs are pretty stable. Pulse is 52. Blood pressure 173/95. GENERAL: Shows a pleasant elderly male. He is sitting up in bed and looks completely comfortable. LUNGS: Clear to auscultation. HEART: Regular rate and rhythm. ABDOMEN: Soft, nontender, nondistended. EXTREMITIES: Grossly neurovascularly, intact except as follows. Examination of the right leg reveals the dressing to be clean, dry, and intact. Leg alignment looks good. He can do a straight leg raise with a little bit of a lag. He can dorsiflex and plantarflex h is foot appropriately. He is neurologically intact. LABORATORY DATA: Hemoglobin 14.1. Hematocrit 41.0. Electrolytes are stable. ASSESSMENT: An 86-year-old gentleman with a significant heart history, postoperative day 1 from a ri ght knee replacement. Clinically, he is doing well. A little hypertensive, but bradycardic. PLAN: 1. Deep venous thrombosis prophylaxis includes thigh-high TEDs, SCDs, and aspirin twice a day. 2. PT/OT. He can fully weightbear as tolerated on the right leg. 3. Pain control, doing okay with current pain regimen. 4. Hypertension. We will have to follow this along and make sure he is back on his normal meds. If he continues to be hypotensive, we may have to add some additional medicines. We will have to make sure his pain is controlled. He is asymptomatic. 5. Disposition: Plan is to discharge to home with some home health once adequately recovered and me dically stable. Job ID: [id number]
[2021-12-27] MEDS: SENNA 8.6 MG TAB PO SCH (20:54)
[2021-12-27] MEDS: TAMSULOSIN HCL 0.4 MG CAP PO SCH (20:54)
[2021-12-28] MEDS: KETOROLAC TROMETHAMINE 15 MG/ML VIAL IV SCH ×2 (01:04→06:41)
[2021-12-28] MEDS: ACETAMINOPHEN 500 MG TAB PO SCH (06:42)
--- NOTE | 2021-12-28 08:19 | Progress Notes ---
DATE OF NOTE: 12/28/2021. SUBJECTIVE: An 86-year-old gentleman, postoperative day 2 from a right knee replacement. He is doin g well. Pain is controlled. Therapy has gone well. No chest pain or shortness of breath. He is ho ping to go to home today. OBJECTIVE: VITAL SIGNS: Temperature 36.5. Vital signs are stable. Blood pressure improved. GENERAL: Shows a pleasant, elderly male. He is lying in bed, looks pretty comfortable. EXTREMITIES: Examination of the right leg reveals the dressing to be clean, dry and intact. He can dorsiflex and plantarflex his foot appropriately. He can do a good straight leg raise. ASSESSMENT: An 86-year-old gentleman, postoperative day 2 from right knee replacement, doing well. Pain is controlled. He is neurologically intact. Blood pressure is improved. Still a little bit hi gh, but acceptable. PLAN: 1. DVT prophylaxis includes thigh-high TEDs, SCDs, and aspirin twice a day. 2. PT/OT, weightbear as tolerated. Right total knee protocol. 3. Pain control, doing okay with current pain regimen. 4. Disposition: Plan to discharge to home with some home health later today. Job ID: [id number]
[2021-12-28] MEDS: DOCUSATE SODIUM 100 MG CAP PO SCH (09:26)
[2021-12-28] MEDS: ASPIRIN 81 MG ECTAB PO SCH (09:27)
[2021-12-28] MEDS: METOPROLOL TARTRATE 50 MG TAB PO SCH (09:27)
[2021-12-28] MEDS: ASCORBIC ACID 500 MG TAB PO SCH (09:27)
[2021-12-28] MEDS: MULTIVITAMIN TAB PO SCH (09:28)
--- NOTE | 2021-12-30 14:12 | Discharge Summary ---
Date of Service December 30, 2021 Discharge Data Procedures Performed Operation Date: 12/26/21 08:50 Actual Procedures p Right Total Knee Arthroplasty(Right) - Jamel Lott MD Hospital Course (1) Status post total right knee replacement: This is a 86 year old patient admitted on 12/26/21 and underwent total knee arthroplasty. He tolerated the procedure well and there were no complications. Transferred to the PACU post op and later to the orthopedic floor for further care. He was given ancef for antibiotic prophylaxis. He was also given SANTIAGO stockings, SCDs, and aspirin for DVT prophylaxis. Hemoglobin, hematocrit, and vital signs were monitored during his hospital stay and remained stable. Did not require any blood transfusions. There were no complications during his hospital stay. By post op day #2 the patient was tolerating a regular diet, pain was reasonably controlled with oral pain medicine, and he was participating in physical therapy. On post op day #2 the patient was discharged home and set up with home health care. He was given printed discharge instructions including prescriptions for extra strength tylenol, aspirin, ketorolac, zofran, senokot, and oxycodone. Continue physical therapy, weight bearing as tolerated. Continue SANTIAGO stockings. Follow up approximately 2 weeks post op or sooner if there are problems or concerns. Coding Level of Care Code None Diagnoses Status post total right knee replacement Z96.651
== END 2021-12-28 14:00 | disposition home health service (06) ==
LOC: PACUINP 06:15 → ASU 06:15 → 3E 14:15